=== PATIENT | male | born 1970 | race Caucasian/White ===

== ENCOUNTER 2017-10-01 22:14 | Emergency (ER) | payer BC ==
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
--- NOTE | 2017-10-02 11:17 | CR ---
EXAM DATE: 10/01/17 PATIENT'S AGE: 47 Patient: LEIGHANN URIAS Facility: [place], [place] Site . Site : [id number] Study: XRay Facial nasal bones [id number]/[id number] 10:41:05 PM Ordering Physician: Doctor Wu Final Report: INDICATION: trauma TECHNIQUE: Four views of the nasal bone COMPARISON: None FINDINGS/IMPRESSION: Bones: Minimally-displaced nasal bridge fracture. Sinuses: Unremarkable. Soft tissues: Unremarkable. Dictated by Errol Armenta MD @ 10/01/2017 10:46:12 PM Dictated by: Errol Armenta MD @ 10/01/2017 22:46:19 (Electronic Signature) Report Signed by Proxy. [email or web address]
== END 2017-10-01 23:08 | disposition home or self-care (01) ==
LOC: MW.ED 22:14
DX: S02.2XXA Fracture of nasal bones, initial encounter for closed fracture (principal); W50.0XXA Accidental hit or strike by another person, initial encounter; Z88.0 Allergy status to penicillin; Z79.899 Other long term (current) drug therapy
CPT/HCPCS: 70160; 70160-26; 99283